=== PATIENT | male | born 1975 | race Caucasian/White ===

== ENCOUNTER 2024-12-29 07:39 | Emergency (ER) | payer OTHER ==
[~2024-12-29] VITALS: Ht 182.9 cm; Wt 163.3 kg
[~2024-12-29 07:39] MED LIST: Percocet 10-321 EACH PO; Valium5 MG PO
[2024-12-29] MEDS ORDERED: METF500 PO (08:13)
[2024-12-29] MEDS ORDERED: OZEMPIC2 MG/0.75 SC (08:13)
[2024-12-29] MEDS ORDERED: PIOGLITAZONE HC45 MG PO (08:14)
[2024-12-29] MEDS ORDERED: Prinivil10 MG PO (08:14)
[2024-12-29] MEDS ORDERED: Simvastatin20 MG PO (08:15)
[2024-12-29] MEDS ORDERED: GLIP10 PO (08:15)
[2024-12-29] MEDS ORDERED: Acetaminophen 325 MG TABLET PO ONE (08:15)
[2024-12-29] MEDS ORDERED: Ketorolac Tromethamine 30mg Vial IM ONE (08:15)
[2024-12-29 09:19] VITALS: BP 153/89
== END 2024-12-29 09:57 | disposition home or self-care (01) ==
LOC: ER 07:39
DX: S82.51XA Displaced fracture of medial malleolus of right tibia, initial encounter for closed fracture (principal); S86.011A Strain of right Achilles tendon, initial encounter; W22.8XXA Striking against or struck by other objects, initial encounter; Z87.891 Personal history of nicotine dependence
CPT/HCPCS: 73610; 76882; A9270; J1885